=== PATIENT | male | born 1960 ===

== ENCOUNTER → 2024-10-22 | Outpatient (CLI) | payer OTHER ==
--- NOTE | 2024-10-22 09:32 | US ---
EXAMINATION TYPE: US carotid duplex BILAT DATE OF EXAM: 10/22/2024 COMPARISON: NONE CLINICAL INDICATION: Male, 63 years old with history of R09.89 OTH SYMPTOMS AND SIGNS INVOLVING THE C IRC A; Right carotid bruit Additional History: R09.89 Carotid bruit TECHNIQUE: Grayscale, color Doppler and spectral Doppler evaluation of the bilateral carotid systems and vertebral arteries. Indirect Doppler criteria was utilized. FINDINGS: EXAM MEASUREMENTS: RIGHT: Peak Systolic Velocity (PSV) cm/sec ----- Right CCA: 86.6 ----- Right ICA: 220 ----- Right ECA: 312 ICA/CCA ratio: 2.54 RIGHT: End Diastole cm/sec ----- Right CCA: 29.8 ----- Right ICA: 70.0 ----- Right ECA: 18.2 LEFT: Peak Systolic Velocity (PSV) cm/sec ----- Left CCA: 124 ----- Left ICA: 108 ----- Left ECA: 124 ICA/CCA ratio: 0.87 LEFT: End Diastole cm/sec ----- Left CCA: 38.8 ----- Left ICA: 46.9 ----- Left ECA: 23.6 VERTEBRALS (direction of flow): Right Vertebral: Antegrade Left Vertebral: Antegrade Rhythm: Normal VP TREASURER NOTES: Moderate plaque bilateral bifurcations. Increased velocities right ICA, right ECA IMPRESSION: Increased velocities right ICA suggesting a moderate, 50-69% stenosis. Criteria for Assigning % of Stenosis / Diameter reduction (Estimation based on the indirect measurements of the internal carotid artery velocities (ICA PSV). 1. Normal (no stenosis)=ICA PSV < 180 cm/s: ratio < 2.0: ICA EDV<40 cm/s. 2. Less than 50% stenosis=ICA PSV < 180 cm/s: ratio < 2.0: ICA EDV<40 cm/s. 3. 50 to 69% stenosis=ICA PSV of 180 to 230 cm/s: ration 2.0 ? 4.0: ICA EDV 40-100 cm/s. PSV 125-180 cm/sec and ICA/CCA PSV Ratio ? 2.0 is also consistent with 50-69% stenosis 4. Greater than 70% stenosis to near occlusion= ICA PSV > 230 cm/s: ratio > 4.0: ICA EDV > 100 cm/s. 5. Near occlusion= ICA PSV velocities may be low or undetectable: variable ratio and ICA EDV. 6. Total occlusion=unable to detect flow. [facility], , 10/22/2024 9:29 AM
== END | disposition home or self-care (01) ==
LOC: RADUSWWP 07:37
PROVIDERS: ATTEND Internal Medicine
DX: R09.89 Other specified symptoms and signs involving the circulatory and respiratory systems (principal)
CPT/HCPCS: 93880

== ENCOUNTER → 2024-10-22 | Outpatient (CLI) | payer OTHER ==
[2024-10-22 15:55] LABS: Chol/HDL Ratio 4.71 Ratio; LDL Cholesterol,Calculated 97.6 mg/dL (0.0-131.0)
[2024-10-22 15:56] LABS: ALT 32 U/L (10-49); AST 26 U/L (14-35); Albumin 4.7 g/dL (3.8-4.9); Albumin/Globulin Ratio 1.96 Ratio (1.60-3.17); Alkaline Phosphatase 58 U/L (41-126); BUN/Creat Ratio 17.09 Ratio (12.00-20.00); Blood Urea Nitrogen 18.8 mg/dL (9.0-27.0); Calcium 9.5 mg/dL (8.7-10.3); Carbon Dioxide 22.5 mmol/L (21.6-31.8); Chloride 105 mmol/L (96-109); Globulin 2.4 g/dL (1.6-3.3); Glucose 116 mg/dL (70-110); Potassium 4.9 mmol/L (3.5-5.5); Sodium 141 mmol/L (135-145); Total Bilirubin 0.3 mg/dL (0.3-1.2); Total Protein 7.1 g/dL (6.2-8.2)
[2024-10-22 16:15] LABS: Basophils # (A) 0.03 X 10*3/uL (0.00-0.10); Basophils % (A) 0.6 %; Eosinophils # (A) 0.11 X 10*3/uL (0.04-0.35); Eosinophils % (A) 2.1 %; HCT 46.8 % (39.6-50.0); HGB 15.6 g/dL (13.0-17.0); Lymphocytes # (A) 1.14 X 10*3/uL (0.90-5.00); Lymphocytes % (A) 21.8 %; MCH 30.6 pg (27.0-32.0); MCHC 33.3 g/dL (32.0-37.0); MCV 91.8 FL (80.0-97.0); Mean Platelet Volume 11.1 FL (9.5-12.2); Monocytes # (A) 0.48 X 10*3/uL (0.20-1.00); Monocytes % (A) 9.2 %; NRBC Per 100 WBC 0 X 10*3/uL (0.00-0.01); Neutrophils # (A) 3.44 X 10*3/uL (1.80-7.70); Neutrophils % (A) 65.9 %; Platelet Count 177 X 10*3/uL (140-440); RBC Morphology Normal (Normal); WBC 5.22 X 10*3/uL (4.50-10.00)
== END | disposition home or self-care (01) ==
LOC: LABWHC1 08:26
PROVIDERS: ATTEND Internal Medicine
DX: Z11.59 Encounter for screening for other viral diseases (principal); Z12.5 Encounter for screening for malignant neoplasm of prostate; E78.5 Hyperlipidemia, unspecified; M25.562 Pain in left knee
CPT/HCPCS: 86803; 80061; 80053; 84443; 84550; 85025; 36415; G0103; 83036